=== PATIENT | female | born 1955 | race Caucasian/White ===

== ENCOUNTER 2019-08-18 19:15 | Emergency (ER) | payer SELFPAY ==
--- NOTE | 2019-08-18 21:20 | NUR ---
PT APPROACHED [facility] ACC DESK, ASKING FOR MULT DIFFERENT PT'S, SAID THEY WERE LOOKING FOR A PT THAT WAS ADMITTED FOR DEMENTIA. PT THEN WENT INTO A PT'S ROOM SAYING THAT SHE WAS THE PT'S GRANDDAUGHTER. THAT PT SAID THEY DO NOT KNOW HER AND THAT SHE IS NOT THEIR GRANDDAUGHTER. PT THEN CAME UP TO THE DESK AND ASKED IF WE COULD HELP HER FIND HER CAR, SHE ASKED WERE THE CERTIFIED LOW VISION THERAPIST WAS. SHE SAID SHE KNEW SHE WAS IN [place] AND KNEW SHE WAS AT THE HOSPITAL. THEN SHE ASKED WHICH WAY WAS [place]TH, SAID THAT SHE NEEDED TO GET TO -5. THERE IS A WRIST BAND ON HER ARM WITH THE NAME JOSE MORLEY ON IT. LOOKED THE NAME UP AND FOUND THIS ADMISSION INFORMATION TO THE ER WAITING ROOM. PT IS NOW BELIEVED TO BE HEADING BACK TO THE ER/ADMITTING ENTRANCE. WE CALLED SECURITY AND ER AND LET THEM KNOW ABOUT THE PT AND WHAT HAD TRANSPIRED.
== END 2019-08-18 19:48 | disposition left against medical advice (07) ==
LOC: ER 19:15
DX: Z53.21 Procedure and treatment not carried out due to patient leaving prior to being seen by health care provider (principal)

== ENCOUNTER 2019-08-18 23:14 | Emergency (ER) | payer OTHER ==
[~2019-08-18] VITALS: Ht 172.7 cm; Wt 56.7 kg
[2019-08-19 01:02] LABS: BASOPHILS ABSOLUTE AUTO 0.06 K/mm3 (0.00-0.23); BASOPHILS PERCENT AUTO 1 % (0-2); EOSINOPHILS ABSOLUTE AUTO 0.05 K/mm3 (0.00-0.68); EOSINOPHILS PERCENT AUTO 1 % (0-6); Hematocrit 30.4 % (33.0-51.0); Hemoglobin 9.9 g/dL (11.5-16.0); IMMATURE GRAN ABSOLUTE AUTO 0.02 K/mm3 (0.00-0.10); IMMATURE GRAN PERCENT AUTO 0 % (0-1); LYMPHOCYTES ABSOLUTE AUTO 2.32 K/mm3 (0.84-5.20); LYMPHOCYTES PERCENT AUTO 26 % (21-46); MONOCYTES PERCENT AUTO 7 % (4-13); Mean Corpuscular HGB 28.4 pg (26.0-34.0); Mean Corpuscular HGB Conc 32.6 g/dL (31.5-36.5); Mean Corpuscular Volume 87 fL (80-100); Mean Platelet Volume 9.4 fL (9.1-12.4); NEUTROPHILS ABSOLUTE AUTO 5.73 K/mm3 (1.96-9.15); NEUTROPHILS PERCENT AUTO 65 % (41-73); Platelet Count 432 K/mm3 (150-400); RDW Coefficient Variation 14.3 % (11.7-14.2); RDW Standard Deviation 45.1 fL (35.1-46.3); Red Blood Cell Count 3.48 M/mm3 (3.80-5.20); White Blood Cell Count 8.78 K/mm3 (4.00-11.30)
[2019-08-19 01:23] LABS: Alanine Aminotransfer (ALT/SGP 18 U/L (12-78); Albumin, Blood 3.8 g/dL (3.4-5.0); Alk Phos 58 U/L (50-136); Anion Gap 10 mmol/L (6-16); Aspartate Aminotrans (AST/SGOT 21 U/L (12-37); Bilirubin, Total 0.3 mg/dL (0.1-1.0); Blood Urea Nitrogen 15 mg/dL (8-24); Bun/Creatinine Ratio 17.5 (12.0-20.0); CO2, Blood 21 mmol/L (21-32); Chloride, Blood 103 mmol/L (98-108); Creatinine, Blood 0.86 mg/dL (0.40-1.00); Ethanol (Alcohol), Blood, Med <3 mg/dL; Glomerular Filtration Rate >60 (60-); Glucose, Blood 89 mg/dL (70-99); Potassium, Blood 4.1 mmol/L (3.5-5.5); Salicylate 3.2 mg/dL (2.8-20.0); Sodium, Blood 134 mmol/L (136-145); Total Protein, Blood 7.8 g/dL (6.4-8.2)
[2019-08-19 01:27] LABS: Acetaminophen, Random <2.0 ug/mL (10.0-30.0)
== END 2019-08-19 02:06 | disposition left against medical advice (07) ==
LOC: ER 23:14
PROVIDERS: Emergency Medicine
DX: R41.0 Disorientation, unspecified (principal); F41.9 Anxiety disorder, unspecified
CPT/HCPCS: 80053; 85025; 99284; G0480

== ENCOUNTER 2019-08-19 05:48 | Emergency (ER) | payer OTHER ==
[~2019-08-19] VITALS: Ht 172.7 cm; Wt 56.7 kg
== END 2019-08-19 07:22 | disposition home or self-care (01) ==
LOC: ER 05:48
DX: Z00.00 Encounter for general adult medical examination without abnormal findings (principal)
CPT/HCPCS: 99283